=== PATIENT | male | born 1995 | race Caucasian/White ===

== ENCOUNTER 2020-03-05 07:57 | Emergency (ER) | payer OTHER ==
[~2020-03-05] VITALS: Ht 193 cm; Wt 86.4 kg
[2020-03-05] MEDS ORDERED: FLUORESCEIN SOD(OPTH) 1 MG STRP ONE (08:24)
[2020-03-05 09:02] VITALS: BP 141/85
== END 2020-03-05 08:53 | disposition home or self-care (01) ==
LOC: FSED 08:05
DX: H57.12 Ocular pain, left eye (principal); T15.02XA Foreign body in cornea, left eye, initial encounter; Y99.0 Civilian activity done for income or pay
CPT/HCPCS: 99282